=== PATIENT | male | born 1960 | race Caucasian/White ===

== ENCOUNTER 2018-11-27 07:00 | Outpatient (RCR) | payer BC | END 2018-12-01 | LOC: M PT 07:00 | PROVIDERS: ATTEND Internal Medicine | DX: Z51.89 Encounter for other specified aftercare (principal); M54.2 Cervicalgia; S46.012D Strain of muscle(s) and tendon(s) of the rotator cuff of left shoulder, subsequent encounter ==

== ENCOUNTER 2018-12-25 07:00 | Outpatient (RCR) | payer BC | END 2018-12-31 | LOC: M PT 07:00 | PROVIDERS: ATTEND Internal Medicine | DX: M54.2 Cervicalgia (principal) ==